=== PATIENT | male | born 1955 | race Caucasian/White ===

== ENCOUNTER → 2017-04-15 | Outpatient (CLI) | payer OTHER ==
[2017-04-15 12:09] LABS: BILIRUBIN,URINE NEGATIVE (NEG); GLUCOSE,URINE NEGATIVE (NEG); NITRITE,URINE NEGATIVE (NEG); PROTEIN,URINE NEGATIVE (NEG-TRACE); UROBILINOGEN,URINE 0.2 mg/dL (0.2 mg/dL)
[2017-04-15 12:10] LABS: BASO # 0.1 x10^3/uL (0.0-0.2); BASO % 1 % (0-3); EOS % 12 % (0-3); HEMATOCRIT 44.6 % (39.0-53.0); HEMOGLOBIN 15.3 g/dL (13.0-17.5); LYMPH # 1.6 x10^3/uL (1.0-4.8); LYMPH % 30 % (24-48); MEAN CORPUSCULAR HEMOGLOBIN 32 pg (25-35); MEAN CORPUSCULAR HGB CONC 34 g/dL (31-37); MEAN CORPUSCULAR VOLUME 92 fL (79-100); MONO % 9 % (0-9); NEUT % 49 % (31-73); PLATELET COUNT 164 x10^3/uL (140-400); RED BLOOD COUNT 4.83 x10^6/uL (4.30-5.70); RED CELL DISTRIBUTION WIDTH 13.5 % (11.5-14.5); WHITE BLOOD COUNT 5.6 x10^3/uL (4.0-11.0)
[2017-04-15 12:21] LABS: BACTERIA,URINE 0 /HPF (0-FEW); RBC,URINE 0 /HPF (0-2)
[2017-04-15 12:26] LABS: ALBUMIN 4.3 g/dL (3.4-5.0); ALBUMIN/GLOBULIN RATIO 1.1 (1.0-1.7); CALCIUM 8.9 mg/dL (8.5-10.1); GFR 75.7; POTASSIUM 4.4 mmol/L (3.5-5.1); TOTAL BILIRUBIN 0.7 mg/dL (0.2-1.0); TOTAL PROTEIN 8.1 g/dL (6.4-8.2)
[2017-04-15 12:27] LABS: CHOLESTEROL/HDL RATIO 6.4
== END | disposition home or self-care (01) ==
LOC: LAB 11:52
PROVIDERS: ATTEND Internal Medicine
DX: Z12.5 Encounter for screening for malignant neoplasm of prostate (principal); E11.9 Type 2 diabetes mellitus without complications
CPT/HCPCS: 36415; 80053; 80061; 81001; 83036; 84443; 85027; G0103

== ENCOUNTER → 2018-04-16 | Outpatient (CLI) | payer OTHER ==
[2018-04-16 12:26] LABS: ADD MAN DIFF? NO
[2018-04-16 12:37] LABS: BILIRUBIN,URINE NEGATIVE (NEG); CLARITY,URINE CLEAR; COLOR,URINE YELLOW; GLUCOSE,URINE >=1000 mg/dL (NEG); NITRITE,URINE NEGATIVE (NEG); PROTEIN,URINE 30 mg/dL (NEG-TRACE); UROBILINOGEN,URINE 0.2 mg/dL (0.2 mg/dL)
[2018-04-16 12:44] LABS: SQUAMOUS EPITHELIAL CELL,UR OCC /LPF
[2018-04-16 12:45] LABS: BACTERIA,URINE 0 /HPF (0-FEW); BASO % 1 % (0-3); EOS # 0.3 x10^3/uL (0.0-0.7); EOS % 5 % (0-3); HEMATOCRIT 45.7 % (39.0-53.0); HEMOGLOBIN 15.9 g/dL (13.0-17.5); LYMPH # 1.4 x10^3/uL (1.0-4.8); LYMPH % 25 % (24-48); MEAN CORPUSCULAR HEMOGLOBIN 32 pg (25-35); MEAN CORPUSCULAR HGB CONC 35 g/dL (31-37); MEAN CORPUSCULAR VOLUME 91 fL (79-100); MONO # 0.4 x10^3/uL (0.0-1.1); MONO % 7 % (0-9); NEUT # 3.6 x10^3uL (1.8-7.7); NEUT % 63 % (31-73); PLATELET COUNT 187 x10^3/uL (140-400); RBC,URINE 0 /HPF (0-2); RED BLOOD COUNT 5.05 x10^6/uL (4.30-5.70); RED CELL DISTRIBUTION WIDTH 13.4 % (11.5-14.5); WBC,URINE 0 /HPF (0-4); WHITE BLOOD COUNT 5.7 x10^3/uL (4.0-11.0)
[2018-04-16 13:12] LABS: ALBUMIN 4.2 g/dL (3.4-5.0); ALK PHOS 96 U/L (46-116); ALT (SGPT) 40 U/L (16-63); ANION GAP 11 (6-14); AST (SGOT) 22 U/L (15-37); BLOOD UREA NITROGEN 17 mg/dL (8-26); BUN/CREATININE RATIO 15 (6-20); CALCIUM 9.7 mg/dL (8.5-10.1); CARBON DIOXIDE 27 mmol/L (21-32); CHLORIDE 101 mmol/L (98-107); CHOLESTEROL 253 mg/dL (0-200); CREATININE 1.1 mg/dL (0.7-1.3); GFR 67.6; GLUCOSE 269 mg/dL (70-99); HDLC 36 mg/dL (40-60); LDLC 154 mg/dL (0-100); NON-HDL CHOLESTEROL 217 mg/dL (0-129); POTASSIUM 4.3 mmol/L (3.5-5.1); SODIUM 139 mmol/L (136-145); TOTAL BILIRUBIN 0.8 mg/dL (0.2-1.0); TOTAL PROTEIN 8.3 g/dL (6.4-8.2); TRIGLYCERIDES 316 mg/dL (0-150); VLDLC 63 mg/dL (0-40)
[2018-04-16 13:23] LABS: THYROID STIM HORMONE (TSH) 1.261 uIU/mL (0.358-3.74)
[2018-04-16 14:53] LABS: PROSTATE SPECIFIC ANTIGEN 1.39 ng/mL (0.00-4.00)
[2018-04-17 15:49] LABS: CREAT RD UR 232.5 mg/dL (Not Estab.); MICRO CREAT RATIO 50.1 mg/g creat (0.0-30.0); MICROALB RD UR 116.5 ug/mL (Not Estab.)
[2018-04-17 17:19] LABS: HEMOGLOBIN A1C 9.8 % (4.8-5.6)
== END | disposition home or self-care (01) ==
LOC: LAB 12:10
DX: Z12.5 Encounter for screening for malignant neoplasm of prostate (principal); E11.9 Type 2 diabetes mellitus without complications
CPT/HCPCS: 36415; 80053; 80061; 81001; 82043; 82570; 83036; 84443; 85025; G0103

== ENCOUNTER → 2019-07-30 | Outpatient (CLI) | payer OTHER ==
[2019-07-30 11:21] LABS: BASO % 1 % (0-3); EOS # 0.3 x10^3/uL (0.0-0.7); EOS % 6 % (0-3); HEMATOCRIT 45.2 % (39.0-53.0); HEMOGLOBIN 15.8 g/dL (13.0-17.5); LYMPH # 1.2 x10^3/uL (1.0-4.8); LYMPH % 21 % (24-48); MEAN CORPUSCULAR HEMOGLOBIN 32 pg (25-35); MEAN CORPUSCULAR HGB CONC 35 g/dL (31-37); MEAN CORPUSCULAR VOLUME 91 fL (79-100); MONO # 0.5 x10^3/uL (0.0-1.1); MONO % 10 % (0-9); NEUT # 3.4 x10^3/uL (1.8-7.7); NEUT % 62 % (31-73); PLATELET COUNT 185 x10^3/uL (140-400); RED BLOOD COUNT 4.98 x10^6/uL (4.30-5.70); WHITE BLOOD COUNT 5.5 x10^3/uL (4.0-11.0)
[2019-07-30 11:49] LABS: CALCIUM 9.5 mg/dL (8.5-10.1); CREATININE 1.1 mg/dL (0.7-1.3); GFR 67.4; POTASSIUM 4.4 mmol/L (3.5-5.1); TOTAL BILIRUBIN 0.6 mg/dL (0.2-1.0); TOTAL PROTEIN 8.1 g/dL (6.4-8.2)
[2019-07-30 12:37] LABS: BILIRUBIN,URINE NEGATIVE (NEG); CLARITY,URINE CLEAR; COLOR,URINE YELLOW; NITRITE,URINE NEGATIVE (NEG); PROTEIN,URINE NEGATIVE (NEG-TRACE); UROBILINOGEN,URINE 0.2 mg/dL (0.2 mg/dL)
[2019-07-30 13:28] LABS: BACTERIA,URINE 0 /HPF (0-FEW); HYALINE CASTS, URINE FEW /HPF; RBC,URINE 0 /HPF (0-2); SQUAMOUS EPITHELIAL CELL,UR OCC /LPF; WBC,URINE 0 /HPF (0-4)
[2019-07-31 05:10] LABS: MICRO CREAT RATIO 26.5 mg/g creat (0.0-30.0); MICROALB RD UR 32.9 ug/mL (Not Estab.)
[2019-07-31 06:11] LABS: HEMOGLOBIN A1C 8.8 % (4.8-5.6)
== END | disposition home or self-care (01) ==
LOC: LAB 11:01
PROVIDERS: ATTEND Internal Medicine
DX: Z12.5 Encounter for screening for malignant neoplasm of prostate (principal); E11.9 Type 2 diabetes mellitus without complications
CPT/HCPCS: 36415; 80053; 80061; 81001; 82043; 82570; 83036; 84443; 85025; G0103

== ENCOUNTER → 2020-07-13 | Outpatient (CLI) | payer OTHER ==
[2020-07-13 08:27] LABS: BASO % 1 % (0-3); EOS # 0.1 x10^3/uL (0.0-0.7); EOS % 5 % (0-3); HEMATOCRIT 38.2 % (39.0-53.0); HEMOGLOBIN 13.2 g/dL (13.0-17.5); LYMPH # 0.8 x10^3/uL (1.0-4.8); LYMPH % 25 % (24-48); MEAN CORPUSCULAR HEMOGLOBIN 31 pg (25-35); MEAN CORPUSCULAR HGB CONC 35 g/dL (31-37); MEAN CORPUSCULAR VOLUME 90 fL (79-100); MONO # 0.5 x10^3/uL (0.0-1.1); MONO % 15 % (0-9); NEUT # 1.8 x10^3/uL (1.8-7.7); NEUT % 54 % (31-73); PLATELET COUNT 195 x10^3/uL (140-400); RED BLOOD COUNT 4.22 x10^6/uL (4.30-5.70); RED CELL DISTRIBUTION WIDTH 13.1 % (11.5-14.5); WHITE BLOOD COUNT 3.2 x10^3/uL (4.0-11.0)
== END ==
LOC: LAB 07:07
PROVIDERS: ATTEND Internal Medicine
DX: D70.9 Neutropenia, unspecified (principal)
CPT/HCPCS: 36415; 85025

== ENCOUNTER 2020-09-28 10:53 | Day surgery (SDC) | payer OTHER ==
[~2020-09-28 10:53] MED LIST: CIPROFLOXACIN 0.3% OPHTH SOLUTION 5ML BOTTLE. OS ONE; IV RINGERS,LACTATED 1000ML 1,000 ML IV SCH; LIDOCAINE 2% JELLY 6ML IN APPLICATOR. OS ONE; PROPARACAINE 0.5% OPHTH SOLUTION 15ML BOTTLE. OS ONE
[2020-09-28] MEDS ORDERED: METF-658 PO (11:09)
[2020-09-28] MEDS ORDERED: MULT-245 PO (11:09)
[2020-09-28] MEDS ORDERED: INSU100I13 SQ (11:09)
[2020-09-28] MEDS ORDERED: BALANCED SALT IRRIG OPHTH SOLN 15 ML BOTTLE. ONE (11:26)
[2020-09-28] MEDS ORDERED: NEO/POLYMYX/DEXAMETH OPHTH OINTMENT 3.5GM TUBE. ONE (11:26)
[2020-09-28] MEDS ORDERED: CHONDROIT-SOD-HYALURONATE KIT. ONE ×2 (11:26)
[2020-09-28] MEDS ORDERED: LIDOCAINE 1% PF 2 ML VIAL. ONE (11:26)
[2020-09-28] MEDS ORDERED: IV RINGERS,LACTATED 1000ML 1,000 ML IV SCH (11:45)
[2020-09-28] MEDS ORDERED: INSULIN LISPRO 100 UNIT/ML 3ML VIAL for OP,RR ONLY. SQ PRN (11:45)
[2020-09-28] MEDS: CYCLOPENTOLATE 2% OPHTH SOLUTION 2ML BOTTLE. OS SCH ×3 (12:40→12:55)
[2020-09-28] MEDS: PHENYLEPHRINE 10% OPHTH SOLUTION 5ML BOTTLE. OS SCH ×3 (12:41→12:55)
[2020-09-28] MEDS ORDERED: LIDOCAINE 1%/PHENYLEPH 1.5% PF OPHTH 1 ML VIAL. ONE (13:22)
[2020-09-28] MEDS ORDERED: TRYPAN BLUE 0.06% INTRAOCULAR 0.5 ML SYRINGE. IO ONE (14:08)
[2020-09-28 15:03] VITALS: BP 150/81
--- NOTE | 2020-09-28 16:06 | OP ---
DATE OF SURGERY: 09/28/2020 PREOPERATIVE DIAGNOSIS: Significant nuclear and cortical spoking cataract of the left eye. POSTOPERATIVE DIAGNOSIS: Significant nuclear and cortical spoking cataract of the left eye. PROCEDURE: Phacoemulsification with posterior chamber lens implant with use of VisionBlue left eye. ANESTHESIA: Topical with MAC. DESCRIPTION OF PROCEDURE: The patient's anesthetic and dilating drops were applied in the outpatient department and the [place] balloon cuff placed over the eye and used for about 10 minutes. The patient was then brought to the operating room and positioned on the table and the left eye was prepped and draped in usual sterile manner for an intraocular procedure. The operating microscope was then brought into position after placement of a lid speculum. The eye was first observed. It was noted that there was good pupillary dilation; however, there was a significant cortical spoking, which was going to make the capsulorrhexis difficult. I decided to use VisionBlue. A paracentesis incision was made inferotemporally and 1% lidocaine injected into the anterior chamber followed by an injection of air in a Viscoat plug. VisionBlue was then infiltrated over the anterior lens capsule for staining. The air was then displaced with Viscoat and the primary 2.4 mm incision was made temporally. I was then able to perform the capsulorrhexis without difficulty. The lens nucleus was hydrodissected and phacoemulsified without too much difficulty, although it was very sticky and rotating the lens was difficult. The cortical material was then aspirated with the I/A handpiece. Provisc was then injected into the anterior chamber to insufflate the bag and a posterior chamber lens placed into the bag without difficulty. The Provisc was aspirated with the I/A handpiece and the eye was then pressurized. The wound was checked for leaks and there were none. The speculum and drape were removed and Maxitrol ointment instilled in the conjunctival sac and the eye was shielded. The patient was taken to recovery room in satisfactory condition. There were no complications. I will see him tomorrow in my office K SIGIFREDO LONG MD DR: ORLIN/kellen JOB#: [id number] / [id number]
== END 2020-09-28 15:40 | disposition home or self-care (01) ==
LOC: SURG 10:53
PROVIDERS: ATTEND Ophthalmology
DX: E11.36 Type 2 diabetes mellitus with diabetic cataract (principal); H25.89 Other age-related cataract; Z79.899 Other long term (current) drug therapy; Z79.84 Long term (current) use of oral hypoglycemic drugs; Z98.890 Other specified postprocedural states; Z72.89 Other problems related to lifestyle; Z20.828 Contact with and (suspected) exposure to other viral communicable diseases
CPT/HCPCS: 66982; 82962; 87426; C1780; C9803; J0171; J3490; U0003

== ENCOUNTER 2020-11-02 08:47 | Day surgery (SDC) | payer OTHER ==
[~2020-11-02 08:47] MED LIST changes: +CIPROFLOXACIN 0.3% OPHTH SOLUTION 5ML BOTTLE. OD ONE; -CIPROFLOXACIN 0.3% OPHTH SOLUTION 5ML BOTTLE. OS ONE; +CYCLOPENTOLATE 2% OPHTH SOLUTION 2ML BOTTLE. OD SCH; +INSU100I13 SQ; +LIDOCAINE 2% JELLY 6ML IN APPLICATOR. OD ONE; -LIDOCAINE 2% JELLY 6ML IN APPLICATOR. OS ONE; +METF-658 PO; +MULT-245 PO; +PROPARACAINE 0.5% OPHTH SOLUTION 15ML BOTTLE. OD ONE; -PROPARACAINE 0.5% OPHTH SOLUTION 15ML BOTTLE. OS ONE
[2020-11-02] MEDS: CYCLOPENTOLATE 1% OPHTH SOLUTION 2ML BOTTLE. OD SCH ×3 (09:58→10:08)
[2020-11-02] MEDS: PHENYLEPHRINE 10% OPHTH SOLUTION 5ML BOTTLE. OD SCH ×3 (09:58→10:08)
[2020-11-02] MEDS ORDERED: INSULIN LISPRO 100 UNIT/ML 3ML VIAL for OP,RR ONLY. SQ PRN (10:00)
[2020-11-02] MEDS ORDERED: LIDOCAINE 1%/PHENYLEPH 1.5% PF OPHTH 1 ML VIAL. ONE (11:50)
[2020-11-02] MEDS ORDERED: MIDAZOLAM HCL/PF 2 MG/2 ML VIAL. ONE (11:51)
[2020-11-02] MEDS ORDERED: CHONDROIT-SOD-HYALURONATE KIT. ONE (11:51)
[2020-11-02] MEDS ORDERED: BALANCED SALT IRRIG OPHTH SOLN 15 ML BOTTLE. ONE (11:53)
[2020-11-02 12:55] VITALS: BP 136/80
--- NOTE | 2020-11-02 18:46 | OP ---
DATE OF SURGERY: 11/02/2020 PREOPERATIVE DIAGNOSES: Nuclear and cortical spoking cataract of the right eye. POSTOPERATIVE DIAGNOSES: Nuclear and cortical spoking cataract of the right eye. PROCEDURE: Phacoemulsification with posterior chamber lens implant, right eye, with use of VisionBlue. ANESTHESIA: Topical with MAC. DESCRIPTION OF PROCEDURE: The patient's dilating and anesthetic drops were placed into the right eye in the outpatient department. The [place] balloon cuff was used for about 10 minutes. The patient was then brought to the operating room and positioned on the table. The right eye was prepped and draped in a usual sterile manner for an intraocular procedure. A lid speculum was placed between the eyelids and the operating microscope brought into position. It was noted that there was significant cortical spoking in the inferior and temporal part of the lens. I decided to use VisionBlue for better visualization of the capsulorrhexis. A paracentesis incision was made superotemporally and an injection of lidocaine, followed by an injection of air in a Viscoat plug was performed. VisionBlue was then infiltrated over the anterior lens capsule for staining. The air was then displaced with Viscoat and the 2.4 mm incision was made temporally. I was then able to perform the capsulorrhexis without difficulty. The lens nucleus was hydrodissected and phacoemulsified with the phaco handpiece. The cortical material was cleaned up with the I/A handpiece. Provisc was used to insufflate the bag and a Toric posterior chamber lens was placed into the bag without difficulty. The lens was rotated to the 25 degree meridian. The Provisc was then aspirated with the I/A handpiece and the eye was pressurized. The wound was checked for leaks and there were none. The speculum and drape were removed and Maxitrol ointment instilled in the conjunctival sac and the eye was shielded. The patient was taken to the recovery room in satisfactory condition. There were no complications and I will see the patient tomorrow in my office. K SIGIFREDO LONG MD DR: ORLIN/kellen JOB#: [id number] / [id number]
== END 2020-11-02 13:41 | disposition home or self-care (01) ==
LOC: SURG 08:47
PROVIDERS: ATTEND Ophthalmology
DX: E11.36 Type 2 diabetes mellitus with diabetic cataract (principal); H25.11 Age-related nuclear cataract, right eye; Z79.84 Long term (current) use of oral hypoglycemic drugs; Z79.899 Other long term (current) drug therapy; Z98.890 Other specified postprocedural states; Z20.822 Contact with and (suspected) exposure to COVID-19; Z72.89 Other problems related to lifestyle
CPT/HCPCS: 66984; 82962; 87426; C9803; J0171; J2250; J3490; U0003; V2632

== ENCOUNTER → 2020-12-07 | Outpatient (CLI) | payer OTHER ==
[~2020-12-07] MED LIST changes: -CIPROFLOXACIN 0.3% OPHTH SOLUTION 5ML BOTTLE. OD ONE; -CYCLOPENTOLATE 2% OPHTH SOLUTION 2ML BOTTLE. OD SCH; -IV RINGERS,LACTATED 1000ML 1,000 ML IV SCH; -LIDOCAINE 2% JELLY 6ML IN APPLICATOR. OD ONE; -PROPARACAINE 0.5% OPHTH SOLUTION 15ML BOTTLE. OD ONE
--- NOTE | 2020-12-07 13:13 | KCIC ---
EXAM: Right knee, 3 views. HISTORY: Pain. Fall. COMPARISON: None. FINDINGS: 3 views of the right knee are obtained. There is severe medial compartment joint space narr owing with subchondral sclerosis and spurring. There is mild patellofemoral compartment spurring. The re is a small joint effusion. There is a suspected joint loose body. IMPRESSION: 1. 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 2. No acute osseous finding. Electronically signed by: Raquel Nguyen MD (12/07/2020 1:11 PM) [id number]
== END ==
LOC: KCIC 10:46
PROVIDERS: ATTEND Internal Medicine
DX: M17.11 Unilateral primary osteoarthritis, right knee (principal); M76.891 Other specified enthesopathies of right lower limb, excluding foot; M25.461 Effusion, right knee
CPT/HCPCS: 73562

== ENCOUNTER → 2020-12-15 | Outpatient (CLI) | payer OTHER ==
--- NOTE | 2020-12-15 15:22 | KCIC ---
EXAMINATION: MRI RIGHT KNEE WITHOUT IV CONTRAST CLINICAL HISTORY: Lateral right knee pain, mechanical symptoms, and instability following a skiing ac cident this month. TECHNIQUE: Multiplanar multisequential images obtained through the knee without intravenous contrast. COMPARISON: Right knee radiographs 12/07/2020 FINDINGS: MENISCI: Medial Meniscus: Postoperative changes with findings suspicious for horizontal tear and adjacent smal l parameniscal cyst in the posterior horn. Alternatively, this could represent residual postoperative changes. Lateral Meniscus: Intact. LIGAMENTS: ACL: Complete tear PCL: Intact MCL: Thickening and intermediate signal in the proximal ligament, compatible with remote injury LCL Complex: Intact CARTILAGE: Medial Femoral Condyle: Large area(s) of full thickness cartilage loss/fissuring with subchondral mar row reactive/cystic changes in the weightbearing portion of the condyle Medial Tibial Plateau: Large area(s) of full thickness cartilage loss/fissuring subchondral Lateral Femoral Condyle: Large area(s) of predominantly high grade (greater than 50% thickness) carti dom loss and or fissuring with smaller area(s) of full thickness cartilage loss and or fissuring wit h subchondral marrow reactive/cystic changes in the weightbearing portion of the condyle Lateral Tibial Plateau: Normal Patella: Normal Trochlea: Moderate sized area(s) of full thickness cartilage loss and or fissuring TENDONS: Distal quadriceps and patellar tendons intact. Popliteus tendon intact. BONES AND MARROW: Small mildly depressed fracture in the posterior lateral tibial plateau with surrou nding marrow edema. Focal marrow edema in the lateral femoral condyle, compatible with a bone contusi on. MUSCLES: Muscle bulk and signal intensity within normal limits. JOINT FLUID AND SYNOVIUM: Large joint effusion. Mild synovitis. Tiny Ochoa's cyst. IMPRESSION: Tricompartmental full-thickness chondral wear as described, advanced in the medial compartment. Complete ACL tear. Small mildly depressed fracture posterior lateral tibial plateau. Postoperative changes medial meniscus with findings suspicious for a tear in the posterior horn as de scribed. Multiple attempts were made to contact the ordering provider's office on 12/15/2020 beginning at 3:03 PM in order to communicate the above findings. After multiple waits on hold through various extension s, a message was ultimately left for BERENICE SANTOSS, director of graduate medical education at 12/15/2020 3:19 PM. Electronically signed by: Yobany Davey DO (12/15/2020 3:20 PM) [id number]
== END ==
LOC: KCIC MRI 13:30
PROVIDERS: ATTEND Internal Medicine
DX: S82.141A Displaced bicondylar fracture of right tibia, initial encounter for closed fracture (principal); M25.461 Effusion, right knee; X58.XXXA Exposure to other specified factors, initial encounter; Y93.89 Activity, other specified; Y92.89 Other specified places as the place of occurrence of the external cause; Y99.8 Other external cause status
CPT/HCPCS: 73721